=== PATIENT | female | born 1980 | race Caucasian/White ===

== ENCOUNTER 2023-08-18 23:27 | Emergency (ER) | payer SELFPAY ==
[2023-08-18 23:28] VITALS: BMI 26.7
[2023-08-18 23:31] VITALS: BP 166/106
[2023-08-19] MEDS: NSS 500 IV (00:52)
[2023-08-19] MEDS: MULTIVITAMIN 1011 MG IV (00:53)
[2023-08-19] MEDS: MULTIVITAMIN 1011 ML IV (00:53)
[2023-08-19 01:16] LABS: % Basophils 1.8 % (0-2); % Eosinophils 5.2 % (0-6); % Immature Granulocytes 0.3 % (0-0.5); % Lymphocytes 33.3 % (20.5-51.1); % Monocytes 6.8 % (1.7-9.3); % Neutrophils 52.6 % (42.2-75.2); Absolute Basophils 0.1 10^3/uL (0-0.2); Absolute Eosinophils 0.4 10^3/uL (0-0.7); Absolute Lymphocytes 2.3 10^3/uL (1.2-3.4); Absolute Monocytes 0.5 10^3/uL (0.1-0.6); Absolute Neutrophils 3.6 10^3/uL (1.4-6.5); Hematocrit 40.4 % (37.0-47.0); Hemoglobin 14.9 g/dL (12.0-16.0); Mean Corp Hgb Conc. 36.9 g/dL (33.0-37.0); Mean Corpuscular Hgb 36.1 pg (27.0-31.0); Mean Corpuscular Volume 97.8 fL (81.0-99.0); Nucleated Red Blood Cells % 0 %; Platelet Count 233 10^3/uL (130-400); Red Blood Cell Count 4.13 10^6/uL (4.20-5.40); Red Cell Dist. Width 13.9 % (11.5-14.5); White Blood Cell Count 6.8 10^3/uL (4.8-10.8)
--- NOTE | 2023-08-19 01:16 | ED.GENMED ---
History of Present Illness
General
Chief Complaint: Alcohol Problem
Source: patient and family ([place])
Exam Limitations: none
Time Seen by Provider: 08/19/23 00:18
Nursing documentation reviewed up to this point in time: agreed with
Travel History
Have you had any contact with someone who has COVID-19?: No
Do you have any symptoms of coronavirus? Fever > 100 degrees, chills, cough, shortness of breath, sore throat, loss of taste or smell, muscle aches, or headache?: No
History of Present Illness
History of Present Illness:
43-year-old female with a past medical history of alcohol abuse, marijuana use who presents to the emergency department accompanied by her stepson for evaluation of abdominal discomfort and seeking treatment for alcohol abuse. Patient reports that
she has been drinking heavily on a daily basis for over 6 months after she reports a period of sobriety. She says that unfortunately this was triggered by the passing of her . She says that she drinks about a bottle of whiskey a day. She
says that she is very concerned that she damaged her liver by this heavy drinking. She says that she realizes that she is starting to negatively impact her life and the life of her family and so she finally came seeking help daniel is seeking
to be evaluated medically to evaluate for signs of liver damage as she has been having regular abdominal discomfort and nausea. She is also seeking help to find treatment for alcohol use. Regarding her abdominal discomfort�it has been ongoing for
months she feels discomfort in the upper abdomen worse on the right side. She says 'it is like I can feel my liver.' She describes vague aching pain. It seems worse when she drinks. She says she has nausea. No vomiting. No fevers or chills.
She says that in the past she was told that she has fatty liver disease.
Review of Systems
Review of Systems
All Other Systems: ROS reviewed and negative except as documented in HPI and ROS
Constitutional: Denies fever
Respiratory: Denies cough or trouble breathing
Cardiac: Denies chest pain
ABD/GI: Reports abdominal pain and nausea; Denies vomiting or diarrhea
: Denies flank pain
Musculoskeletal: Denies neck pain or back pain
Neurological: Denies headache, weakness or numbness
Psychiatric: Denies suicidal
Phy Exam
Physical Exam
Physical Exam:
General: Awake, alert, oriented x3; intoxicated but no acute distress
Head: Normocephalic, atraumatic
Eyes: Conjunctiva normal, sclera anicteric, pupils equal round reactive to light bilaterally
Throat: Airway intact, handling secretions
Neck: Trachea midline, supple without meningismus
Lungs: Clear to auscultation bilaterally, no wheezing, rales, rhonchi
Heart: Regular rate and rhythm, no murmurs, gallops, or rubs
Abd: Soft, non distended, nontender
Neuro: Cranial nerves grossly intact, no gross motor or sensory deficits
Skin: no rash
Extremities: No edema in extremities, equal pulses in all extremities
Scores
Heart Failure Risk
Heart Failure Risk Score: Not Applicable
Heart Score for Chest Pain Patients
STEMI patient?: Not applicable
Withdrawal Assessment of Alcohol
Withdrawal Assessment Completed?: Not applicable
Course
Orders/Labs/Results
Orders:
Orders
08/19/23 00:26
0.9% Sodium Chloride 500 ml [Nss] 500 ml IV BOLUS
08/19/23 00:55
Complete Blood Count/With Diff Urgent
Drug Screen, Urine [Urine Drug Abuse Screen] Urgent
Date Specimen was Collected: 08/19/23
Time Specimen was Collected: 00:40
08/19/23 01:00
0.9% Sodium Chloride 1000 ml [Nss] 1,000 ml Mvi, Adult [Multivitamin] 10 ml Thiamine Injection 100 mg IV 150 mls/hr
08/19/23 01:16
US Abdomen Complete/Upper Urgent
Comment:
Reason For Exam: upper abd pain
08/19/23 01:33
Alcohol Urgent
Comprehensive Metabolic Panel Urgent
Lipase Urgent
Abnormal Lab Results
08/19/23 08/19/23
00:55 01:33
RBC 4.13 L 10^6/uL
(4.20-5.40)
MCH 36.1 H pg
(27.0-31.0)
Creatinine 0.5 L mg/dL
(0.6-1.0)
Glucose 108 H mg/dl
(70-99)
08/19/23 00:55
08/19/23 01:33
Vital Signs
Initial and Last Documented VS:
Initial Vital Signs
Temp Pulse Resp BP Pulse Ox
36.4 C 96 22 166/106 98
08/18/23 23:31 08/18/23 23:31 08/18/23 23:31 08/18/23 23:31 08/18/23 23:31
Last Documented Vital Signs
Temp Pulse Resp BP Pulse Ox
36.4 C 90 18 111/74 98
08/18/23 23:31 08/19/23 02:36 08/19/23 02:36 08/19/23 03:18 08/19/23 03:20
MDM/Problems Addressed
Differential Diagnosis Includes:
Abdominal discomfort: Alcoholic gastritis, PUD, alcoholic hepatitis, cholecystitis, cholelithiasis, cirrhosis
MDM/Problems Addressed:
43-year-old female with history of alcohol abuse presents for evaluation of chronic abdominal discomfort very concerned with potential damage to the liver, also seeking help regarding her alcohol use. She is hypertensive in triage but blood
pressure normalized by my assessment. Vital signs otherwise within normal limits. Physical exam as above. Plan to place an IV check labs including CBC and CMP, lipase. Will check alcohol and UDS. Provide IV fluids, banana bag. Will check an
upper abdominal ultrasound. Monitor closely reassess after the above.
Labs reviewed: CBC unremarkable, CMP no clinically significant abnormalities�notably normal LFTs. Her lipase is normal. Alcohol was 290. UDS negative. Awaiting results of ultrasound but I suspect her chronic abdominal symptoms are related to
heavy alcohol use and likely some gastritis. Discussed with [facility] who discussed options with patient: patient does not wish to go to inpatient facility, [facility] arranged for outpatient treatment plan.
Ultrasound shows no signs of cirrhosis or ascites no acute pathology. Patient resting comfortably. Suspect her chronic abdominal symptoms are related to alcohol use and gastritis. Will start patient on a PPI. Will monitor until clinical sobriety
and plan for discharge on PPI with outpatient alcohol treatment arranged per [facility].
Patient clinically sober I think she is stable for discharge. She has a ride home. She has no signs of withdrawal. Follow-up plan arranged through [facility]. Spoke to her about return precautions and all questions answered.
*Radiology
Radiology exam reviewed: radiology read reviewed
*Pulse Oximetry
Patient hypoxic: no
*Critical Care Note
Total Time (30-74mins, 75-104mins- exclusive of procedures): Not Applicable
Data Reviewed
Source: patient and family
Patient Management
Social determinants of health affecting care: Substance abuse
Discussion with other providers: Other ([facility])
ED Attending Note
-
Portions of this chart may have been created with voice recognition software.� Occasional wrong word or��sound alike� substitutions may have occurred due to the inherent limitations of voice recognition software.
Discharge Plan
Departure
Patient Disposition: Home (Routine Discharge)
Date of Disposition: 08/19/23
Time of Disposition: 03:54
Patient with high blood pressure during this ER visit?: Yes
Discharge Problem:
Alcoholism, Gastritis
Instructions: Alcohol Use Disorder (DC), Gastritis ED
Prescriptions:
New
pantoprazole [Protonix] 40 mg tablet,delayed release (DR/EC)
40 mg PO DAILY Qty: 30 0RF
Referrals:
UNKNOWN - PT DOES,NOT KNOW [Family Provider] -
Activity Restrictions/Additional Instructions:
Thank you for visiting the Emergency Department at [facility].
1. Please schedule a follow up appointment as directed. Call first thing tomorrow morning to make an appointment.
2. If indicated, please take your medications as instructed and indicated on discharge paperwork.
3. If any of your symptoms do not improve, or persist, or become more severe within 6-12 hours, please return to the emergency department for further care.
4. Please return to the emergency department if you develop a headache, neck pain/stiffness, fever greater than 100.4F, chest pain, shortness of breath, persistent nausea, vomiting, slurred speech, difficulty walking, numbness/tingling, weakness,
signs of infection or any other symptoms that are worrisome to you.
Please call [phone] if you have any questions.
Interventions
Interventions:
*Risk Screen - Suicide Last Done: 08/18/23 23:31
*General Assessment Last Done: 08/19/23 03:23
*Neglect/Abuse Screening Last Done: 08/18/23 23:31
ED- Fall Risk Assessment Last Done: 08/19/23 03:34
*ED COVID-19 Vaccine History Last Done: 08/19/23 00:57
ED- Neurological Assessment Last Done: 08/19/23 00:50
ED-Psychological Assessment Last Done: 08/19/23 00:50
[2023-08-19 01:23] LABS: Amphetamines Negative (Negative); Barbiturates Negative (Negative); Benzodiazepines Negative (Negative); Buprenorphine Negative (Negative); Cocaine Negative (Negative); Marijuana Negative (Negative); Methadone Negative (Negative); Methamphetamines Negative (Negative); Opiates Negative (Negative); Phencyclidine Negative (Negative); Tricyclic Antidepressants Negative (Negative)
[2023-08-19 02:04] LABS: ALT (SGPT) 16 U/L (0-35); AST (SGOT) 28 U/L (14-36); Alkaline Phosphatase 50 U/L (38-126); Blood Urea Nitrogen 7 mg/dl (7-17); Calcium 8.6 mg/dl (8.4-10.2); Carbon Dioxide 24 mmol/L (22-30); Chloride 107 mmol/L (98-107); Estimated Creatinine Clearance 108 ml/min; Glucose 108 mg/dl (70-99); Potassium 3.8 mmol/L (3.5-5.1); Sodium 142 mmol/L (135-145); Total Bilirubin 0.5 mg/dl (0.2-1.3); Total Protein 6.4 g/dl (6.3-8.2); eGFR > 60.00
[2023-08-19 02:13] LABS: Lipase 144 U/L (23-300)
[2023-08-19 02:21] LABS: Alcohol 290 mg/dl
[2023-08-19 02:32] VITALS: BP 117/76
[2023-08-19 02:36] VITALS: BP 117/76
[2023-08-19 03:18] VITALS: BP 111/74
[2023-08-19 04:00] VITALS: BP 94/68
== END 2023-08-19 04:42 | disposition home or self-care (01) ==
LOC: EMR 23:27
PROVIDERS: EMERGENCY PHYSICIAN Emergency Medicine
DX: K29.20 Alcoholic gastritis without bleeding (principal); I10 Essential (primary) hypertension
CPT/HCPCS: 99284; 96360; 76700; 80053; 80306; 82077; 83690; 85025

== ENCOUNTER 2024-09-18 11:58 | Emergency (ER) | payer SELFPAY ==
[2024-09-18 12:01] VITALS: BP 175/106
[2024-09-18 12:14] VITALS: BP 162/107
--- NOTE | 2024-09-18 12:57 | ED.GENMED ---
History of Present Illness
General
Chief Complaint: Chest Pain
Source: patient
Exam Limitations: none
Time Seen by Provider: 09/18/24 12:46
History of Present Illness
History of Present Illness:
44-year-old female has had about 1 week of midsternal chest pain radiating to the back. Constant in nature sharp. Nonpleuritic nonpositional. Nonexertional. There is some waxing and waning component however. Under significant stress.
Past History
Past History
ED Past Medical History: Other (Alcohol use)
ED Past Surgical History: , Orthopedic and Other (Dental)
Review of Systems
Review of Systems
All Other Systems: Not applicable
Constitutional: Denies fever
Respiratory: Denies trouble breathing
ABD/GI: Denies abdominal pain, bloody stools or black stools
Phy Exam
Physical Exam
Physical Exam:
GENERAL: Alert and oriented in no apparent distress
EYE: Orbits normal.
NECK: Supple, no significant adenopathy.
ENT: Pharynx without erythema
CARDIAC: Regular rate and rhythm without any obvious murmurs.
LUNGS: Clear breath sounds,normal
ABDOMEN: Soft, without focal tenderness or distention
NEUROLOGICAL: Alert and oriented , grossly non-focal
SKIN: Warm and dry, no rash or lesion, no discoloration, skin intact.
MUSCULOSKELETAL: No edema,no deformity.Good color
PSYCH: Normal and appropriate interaction.
Scores
Heart Score for Chest Pain Patients
STEMI patient?: No
History: Slightly or Non-Suspicious
ECG: Normal
Age: </= 45 years
Risk Factors: 1 or 2 Risk Factors
Troponin: </= Normal Limit
Heart Score for Chest Pain Patients: 1
Heart Score Risk: 2.5% MACE over next 6 weeks
Course
Orders/Labs/Results
Orders:
Orders
09/18/24 11:59
Electrocardiogram (*1) Urgent
Reason for Study: Chest Pain
EKG- Treatment ONCE
09/18/24 12:56
CT Chest Angio W/wo Iv Contras Urgent
Comment:
Reason For Exam: Chest pain to the back
IV Insert/Care/Rem.- Treatment PRN
Pulse Ox/cont/shift [RESP] Stat
Quantity: 1
09/18/24 12:57
Test Result ONCE
09/18/24 13:10
Complete Blood Count/With Diff Urgent
Comprehensive Metabolic Panel Urgent
HCG, Serum Qualitative Screen Urgent
Lipase Urgent
Troponin I Urgent
Abnormal Lab Results
09/18/24
13:10
RBC 3.88 L 10^6/uL
(4.20-5.40)
MCH 35.3 H pg
(27.0-31.0)
09/18/24 13:10
09/18/24 13:10
Vital Signs
Initial and Last Documented VS:
Initial Vital Signs
Temp Pulse Resp BP Pulse Ox
98 F 112 16 175/106 98
09/18/24 12:01 09/18/24 12:01 09/18/24 12:01 09/18/24 12:01 09/18/24 12:01
Last Documented Vital Signs
Temp Pulse Resp BP Pulse Ox
98 F 80 24 135/83 98
09/18/24 12:01 09/18/24 14:15 09/18/24 14:15 09/18/24 14:00 09/18/24 14:15
MDM/Problems Addressed
Differential Diagnosis Includes:
Continuous chest pain with radiation through to the back. Been going on a week. Nonexertional. Low suspicion for cardiac. EKG normal. Troponin pending. If negative I feel cardiac has been ruled out. With this length of send continue with
symptoms. With chest pain rating to the back will also get a dissection study. Doubt gallbladder issue. No right upper quadrant tenderness. Will however check LFTs and lipase.
*Radiology
Radiology exam reviewed: radiology read reviewed (Negative CT angio)
*Pulse Oximetry
Patient hypoxic: no
*EKG
Interpreted by ED Provider?: Yes
Interpretation: normal
Comparison EKG: no comparison EKG present
Heart Rate: 94
Rate: normal
Rhythm: sinus
Gateway: normal axis
Interval: normal interval
QRS Pattern: normal QRS
Ischemia: no ischemia
*Critical Care Note
Total Time (30-74mins, 75-104mins- exclusive of procedures): Not Applicable
Update Note
Update Note:
Essentially continuous symptoms for [address] angio and negative cardiac testing. Stable for discharge to follow-up
ED Attending Note
-
Portions of this chart may have been created with voice recognition software.� Occasional wrong word or��sound alike� substitutions may have occurred due to the inherent limitations of voice recognition software.
Discharge Plan
Departure
Patient Disposition: Home (Routine Discharge)
Date of Disposition: 09/18/24
Time of Disposition: 15:40
Patient with high blood pressure during this ER visit?: Yes
Discharge Problem:
Anterior chest pain
Instructions: Chest Pain CBC Follow Up
Prescriptions:
No Action
pantoprazole [Protonix] 40 mg tablet,delayed release (DR/EC)
40 mg PO DAILY Qty: 30 0RF
Referrals:
NONE,* [Family Provider] -
Interventions
Interventions:
*Risk Screen - Suicide Last Done: 09/18/24 12:02
*General Assessment Last Done: 09/18/24 13:14
*Neglect/Abuse Screening Last Done: 09/18/24 12:02
ED- Fall Risk Assessment Last Done: 09/18/24 13:14
*ED COVID-19 Vaccine History Last Done: 09/18/24 13:14
ED- Cardiac Assessment Last Done: 09/18/24 13:14
Discharge Date and Time
Print Language: CZECH
[2024-09-18 13:00] VITALS: BP 162/87
[2024-09-18 13:36] LABS: % Basophils 1.2 % (0-2); % Eosinophils 2.2 % (0-6); % Immature Granulocytes 0.3 % (0-0.5); % Lymphocytes 36.5 % (20.5-51.1); % Monocytes 7.2 % (1.7-9.3); % Neutrophils 52.6 % (42.2-75.2); Absolute Basophils 0.1 10^3/uL (0-0.2); Absolute Eosinophils 0.2 10^3/uL (0-0.7); Absolute Lymphocytes 2.5 10^3/uL (1.2-3.4); Absolute Monocytes 0.5 10^3/uL (0.1-0.6); Absolute Neutrophils 3.5 10^3/uL (1.4-6.5); Hematocrit 37.9 % (37.0-47.0); Hemoglobin 13.7 g/dL (12.0-16.0); Mean Corp Hgb Conc. 36.1 g/dL (33.0-37.0); Mean Corpuscular Hgb 35.3 pg (27.0-31.0); Mean Corpuscular Volume 97.7 fL (81.0-99.0); Mean Platelet Volume 9.2 fL (7.4-10.4); Nucleated Red Blood Cells % 0 %; Platelet Count 225 10^3/uL (130-400); Red Blood Cell Count 3.88 10^6/uL (4.20-5.40); Red Cell Dist. Width 13.6 % (11.5-14.5); White Blood Cell Count 6.7 10^3/uL (4.8-10.8)
[2024-09-18 13:47] LABS: HCG, Serum Qualitative Screen Negative
[2024-09-18 13:49] LABS: ALT (SGPT) 13 U/L (0-35); AST (SGOT) 22 U/L (14-36); Alkaline Phosphatase 61 U/L (38-126); Blood Urea Nitrogen 13 mg/dl (7-17); Calcium 9.5 mg/dl (8.4-10.2); Carbon Dioxide 26 mmol/L (22-30); Chloride 100 mmol/L (98-107); Glucose 96 mg/dl (70-99); Sodium 135 mmol/L (135-145); Total Bilirubin 0.8 mg/dl (0.2-1.3); Total Protein 7.2 g/dl (6.3-8.2); eGFR > 60.00
[2024-09-18 14:00] VITALS: BP 135/83
[2024-09-18 14:01] LABS: Troponin I < 0.012 ng/ml
[2024-09-18 14:15] LABS: Lipase 71 U/L (23-300)
[2024-09-18 16:01] VITALS: BP 142/83
== END 2024-09-18 16:52 | disposition home or self-care (01) ==
LOC: EMR 11:58
PROVIDERS: EMERGENCY PHYSICIAN Emergency Medicine
DX: R07.89 Other chest pain (principal)
CPT/HCPCS: 99284; 71275; 80053; 83690; 84484; 84703; 85025; 93005; Q9967